=== PATIENT | female | born 1990 | race Two or more races ===

== ENCOUNTER 2023-08-30 04:11 | Day surgery (SDC) | payer OTHER ==
[2023-08-24 11:31] VITALS: BMI 31.0
[2023-08-30] MEDS ORDERED: FENTANYL CITRATE/PF 50 MCG/ML VIAL ONE ×4 (07:39→09:20)
[2023-08-30] MEDS ORDERED: MIDAZOLAM HCL 2 MG/2 ML SINGLE DOSE VIAL ONE (07:39)
[2023-08-30] MEDS ORDERED: PROPOFOL 40 ML ONE (07:40)
[2023-08-30] MEDS ORDERED: LIDOCAINE HCL/PF 2% SDV 5ML VIAL ONE (07:40)
[2023-08-30] MEDS ORDERED: ELECTROLYTE-148 SOLN 1,000 ML IV SCH (07:45)
[2023-08-30] MEDS ORDERED: IBUPROFEN 800 MG/8 ML IJ IVPB PRN (07:45)
[2023-08-30] MEDS ORDERED: ONDANSETRON 4 MG/2 ML VIAL IVPUSH PRN ×2 (07:45→08:42)
[2023-08-30] MEDS ORDERED: IBUPROFEN 600 MG TABLET (FP) PO PRN (07:45)
[2023-08-30] MEDS ORDERED: oxyCODONE HCL 5 MG TABLET PO PRN ×2 (07:45→08:42)
[2023-08-30] MEDS ORDERED: SUCCINYLCHOLINE CHLORIDE 200 MG/10 ML SYRINGE ONE (07:55)
[2023-08-30] MEDS ORDERED: LACTATED RINGERS SOLUTION 1,000 ML IV SCH (08:45)
[2023-08-30 11:43] VITALS: PULSE 64
[2023-08-30 11:44] VITALS: BP 122/72; RESP 18; TEMP 97
== END 2023-08-30 12:06 | disposition home or self-care (01) ==
LOC: JASU-SURG 04:11
PROVIDERS: ATTEND Obstetrics & Gynecology
PROC: 0UB98ZZ Excision of Uterus, Via Natural or Artificial Opening Endoscopic (ICD-10-PCS; principal; 2023-08-30 07:30)
DX: N84.0 Polyp of corpus uteri (principal); N93.9 Abnormal uterine and vaginal bleeding, unspecified
CPT/HCPCS: 81025; 86850; 86900; 86901; 88305-TC; 94760